=== PATIENT | female | born 1980 | race Caucasian/White ===

== ENCOUNTER → 2018-01-03 13:40 | Outpatient (CLI) | payer OTHER, SELFPAY ==
--- NOTE | 2018-01-03 | DI.US.S_ITS ---
PROCEDURE: US OB <= 14 WEEKS FETUS INDICATIONS: INITIAL SIZING AND DATING OUTSIDE/PRIOR DATING DATA: Last menstrual period (LMP): 10/17/17. LMP-based estimated date of delivery (SHONA): 07/24/18. First dating scan (date and location): 01/03/18. Estimated date of delivery (SHONA) from first dating scan: 08/20/18. TECHNIQUE: Real-time scanning was performed of the fetus and maternal pelvic organs, with image documentation. Endovaginal scanning was also performed to better visualize the fetus and maternal ovaries. COMPARISON: None. FINDINGS: Embryo: [place]-rump length measuring 1.1 cm corresponding to 7 weeks 2 days. SHONA is 08/20/18. No heart activity visualized. Measurement variability in dating: +/- 4 weeks by LMP, +/- 7 days by mean sac diameter (use before 6 weeks gestation if crown-rump length not able to be measured), +/- 5 days by crown-rump length (up to 8 weeks 6 days gestation), +/- 7 days by crown-rump length (up to 13 weeks 6 days gestation). Maternal organs: Ovaries within normal limits. Limited images through the kidneys demonstrate no hydronephrosis. IMPRESSION: A single intrauterine gestation with the estimated gestational age 7 weeks 2 days. There is absence of cardiac activity, highly suspicious for first trimester failure. Recommend clinical correlation and followup. Dictated by: Rene Jade Callie Interpreted: Gregoria Johnson MD on 01/03/2018 at 15:25 Approved by: Gregoria Johnson M.D. on 01/03/2018 at 17:21
== END ==
PROVIDERS: Visit Provider Midwife
DX: Z34.91 Encounter for supervision of normal pregnancy, unspecified, first trimester (principal); Z3A.01 Less than 8 weeks gestation of pregnancy
CPT/HCPCS: 76801; 76817

== ENCOUNTER → 2018-06-13 12:37 | Outpatient (CLI) | payer OTHER, SELFPAY ==
[2018-06-13 17:13] LABS: HCG Quantitative /Beta subunit 61174 mIU/mL
[2018-06-15 16:05] LABS: Progesterone 34.4 ng/mL
== END ==
PROVIDERS: Visit Provider Midwife
DX: O20.0 Threatened abortion (principal)
CPT/HCPCS: 36415; 84144; 84702

== ENCOUNTER → 2018-07-07 13:42 | Outpatient (CLI) | payer OTHER, SELFPAY ==
--- NOTE | 2018-07-07 | DI.US.S_ITS ---
PROCEDURE: US OB <= 14 WEEKS FETUS INDICATIONS: size and dating OUTSIDE/PRIOR DATING DATA: Last menstrual period (LMP): 04/29/18. LMP-based estimated date of delivery (SHONA): 02/03/19. First dating scan (date and location): 07/07/18. Estimated date of delivery (SHONA) from first dating scan: 01/30/19. TECHNIQUE: Real-time scanning was performed of the fetus and maternal pelvic organs, with image documentation. Endovaginal scanning was also performed to better visualize the fetus and maternal ovaries. COMPARISON: None. FINDINGS: Embryo: [place]-rump length of 6.3 cm corresponding to 10 weeks 3 days. Embryonic heart rate at 165 beats per minute. Measurement variability in dating: +/- 4 weeks by LMP, +/- 7 days by mean sac diameter (use before 6 weeks gestation if crown-rump length not able to be measured), +/- 5 days by crown-rump length (up to 8 weeks 6 days gestation), +/- 7 days by crown-rump length (up to 13 weeks 6 days gestation). Maternal organs: Ovaries within normal limits, with left corpus luteal cyst measuring 17 mm. Limited images through the kidneys demonstrate no hydronephrosis. IMPRESSION: 10 week 3 day single living IUP. Dictated by: Rene LIANG Interpreted: Nicole Dallas MD on 07/07/2018 at 14:43 Approved by: Nicole Dallas M.D. on 07/07/2018 at 15:52
== END ==
PROVIDERS: Visit Provider Midwife
DX: Z34.91 Encounter for supervision of normal pregnancy, unspecified, first trimester (principal); Z3A.10 10 weeks gestation of pregnancy
CPT/HCPCS: 76801

== ENCOUNTER → 2018-09-13 09:57 | Outpatient (CLI) | payer OTHER, SELFPAY ==
--- NOTE | 2018-09-13 | DI.US.S_ITS ---
PROCEDURE: OB >= 14 WEEKS FETUS INDICATIONS: ANATOMY OUTSIDE/PRIOR DATING DATA: Last menstrual period (LMP): 04/29/18. LMP-based estimated date of delivery (SHONA): 02/03/19. First dating scan (date and location): 07/07/18. Estimated date of delivery (SHONA) from first dating scan: 01/30/19. TECHNIQUE: Real-time scanning was performed of the fetus, with image documentation and biometric measurements. COMPARISON: [facility], OB <= 14 WEEKS FETUS, 07/07/2018, 14:05. [facility], OB <= 14 WEEKS FETUS, 01/03/2018, 14:12. FINDINGS: General: A single living intrauterine gestation is present. Presentation: Transverse. Placenta: Placental position is fundal, without previa. Amniotic fluid index: 13.6 cm, normal range is 5-24 cm. heart rate: 157 beats per minute. Maternal cervical canal: 5.5 cm long. Normal lower limit is 2.5 cm. biometrics: Biparietal diameter: 4.6 cm 19 weeks 6 days Head circumference: 17.4 cm 19 weeks 6 days Abdominal circumference: 14.8 cm 20 weeks zero days Femur length: 3.1 cm 19 weeks 4 days Estimated gestational age from initial scan: 20 weeks one day Composite gestational age from present scan: 19 weeks 6 days Estimated weight and percentile: 316 g 29th percentile Measurement variability for biometric dating: +/- 7 days from 14 weeks to 15 weeks 6 days gestation, +/- 10 days from 16 weeks to 21 weeks 6 days gestation, +/- 2 weeks from 22 weeks to 27 weeks 6 days gestation, +/- 3 weeks for 28 weeks gestation or later. weight reference: 4500 g or EFW >90/95% is considered macrosomia or large for gestational age. EFW <10% is small for gestational age. EFW 5% or less is considered intra-uterine growth restriction. Anatomic survey: Neuro: Ventricles are non-dilated at less than 10 mm. Cisterna magna is normal at 3-11 mm. Cerebellum is normal in size and morphology. Nuchal skin fold: Normal at less than 6 mm between 14-21 weeks gestational age. Face: Nose and lips, facial profile are not well seen. Spine: No evidence for spina bifida. Heart: 4-chambered heart is present, with normal ventricular outflow tracts. Echogenic focus within the left ventricle is noted. Diaphragm: Diaphragm is intact. Stomach: Left-sided stomach is present. Kidneys: No hydronephrosis. Normal is less than 5 mm in 2nd trimester, less than 7 mm in 3rd trimester. Cord: 3-vessel cord has orthotopic insertion. Bladder: Normal in size. Extremities: All 4 extremities identified. IMPRESSION: 1. Single intrauterine with ultrasound gestational age today of 19 weeks 6 days compared to 20 weeks one day from initial ultrasound. Ultrasound SHONA is unchanged since 01/30/19. 2. Profiles not well seen. Followup imaging is recommended. 2. Nonspecific echogenic focus is present within the left ventricle. Clinical correlation is recommended as well as interval followup. Dictated by: Nicole Dallas M.D. on 09/13/2018 at 13:42 Approved by: Nicole Dallas M.D. on 09/13/2018 at 13:45
== END ==
PROVIDERS: Visit Provider Midwife
DX: Z36.89 Encounter for other specified antenatal screening (principal); Z3A.19 19 weeks gestation of pregnancy
CPT/HCPCS: 76811

== ENCOUNTER → 2018-10-11 10:15 | Outpatient (CLI) | payer OTHER, SELFPAY ==
--- NOTE | 2018-10-11 | DI.US.S_ITS ---
PROCEDURE: US OB FOLLOW UP INDICATIONS: FOLLOW UP FACIAL PROFILE OUTSIDE/PRIOR DATING DATA: Last menstrual period (LMP): 04/29/18. LMP-based estimated date of delivery (SHONA): 02/03/19. First dating scan (date and location): 07/07/18. Estimated date of delivery (SHONA) from first dating scan: 01/30/19, plus or -5 days. TECHNIQUE: Real-time scanning was performed of the fetus, with image documentation. Endovaginal scanning: Not needed for this study COMPARISON: None. FINDINGS: A single living intrauterine gestation is present. Presentation: Vertex. Placenta: Placental position is fundal, without previa. Amniotic fluid index: 15.0 cm, normal range is 5-24 cm. heart rate: 150 beats per minute. Maternal cervical canal: 5.1 cm long. Normal lower limit is 2.5 cm. Estimated gestational age from initial scan: 24 weeks 1 day. Completion of anatomic survey is normal visualized facial area, and also normal 4 chamber view of heart and ventricular outflow tracts. IMPRESSION: Completion of anatomic survey, no anomaly found. Estimated date of delivery is centered on 01/30/19. Dictated by: Tristen Delgado M.D. on 10/11/2018 at 16:37 Approved by: Tristen Delgado M.D. on 10/11/2018 at 16:40
== END ==
PROVIDERS: Visit Provider Midwife
DX: Z36.89 Encounter for other specified antenatal screening (principal); Z3A.24 24 weeks gestation of pregnancy
CPT/HCPCS: 76816

== ENCOUNTER → 2021-02-05 08:21 | Outpatient (CLI) | payer OTHER, SELFPAY ==
--- NOTE | 2021-02-05 | DI.US.S_ITS ---
PROCEDURE: US OB LIMITED INDICATIONS: ALANA OUTSIDE/PRIOR DATING DATA: Last menstrual period (LMP): 04/21/2020. LMP-based estimated date of delivery (SHONA): 01/26/2021. First dating scan (date and location): 07/21/[address] Roy's Office. Estimated date of delivery (SHONA) from first dating scan: 01/21/2021. TECHNIQUE: Real-time scanning was performed of the fetus, with image documentation and biometric measurements. Biophysical profile was also obtained. Endovaginal scanning: Not performed COMPARISON: Outside Facility, , OB ANATOMICAL, 10/01/2020, 16:22. [facility], [place], OB >= 14 WEEKS FETUS, 07/21/2020, 13:21. FINDINGS: General: A single living intrauterine gestation is present. Presentation: Vertex. Placenta: Placental position is anterior , without previa. Amniotic fluid index: 11.4 cm, normal range is 5-24 cm; largest pocket 4.2 cm. heart rate: 147 beats per minute. Maternal cervical canal: Not visualized. biometrics: Not performed Measurement variability for biometric dating: +/- 7 days from 14 weeks to 15 weeks 6 days gestation, +/- 10 days from 16 weeks to 21 weeks 6 days gestation, +/- 2 weeks from 22 weeks to 27 weeks 6 days gestation, +/- 3 weeks for 28 weeks gestation or later. weight reference: 4500 g or EFW >90/95% is considered macrosomia or large for gestational age. EFW <10% is small for gestational age. EFW 5% or less is considered intra-uterine growth restriction. Biophysical profile: Tone: 2 points. Movement: 2 points. Respiration: 2 points. Largest pocket of fluid: 2 points. IMPRESSION: 1. A single living intrauterine gestation is redemonstrated. 2. Normal ALANA. 3. Normal biophysical profile (02/22) Dictated by: Gregoria Johnson M.D. on 02/05/2021 at 16:47 Approved by: Gregoria Johnson M.D. on 02/05/2021 at 16:51
== END ==
PROVIDERS: Referring Provider Midwife; Visit Provider Midwife
DX: O48.1 Prolonged pregnancy (principal); Z3A.41 41 weeks gestation of pregnancy
CPT/HCPCS: 76815; 76819